=== PATIENT | female | born 1975 | race Caucasian/White ===

== ENCOUNTER 2024-07-10 07:23 | Day surgery (SDC) | payer OTHER ==
[2024-07-06 17:01] VITALS: BMI 27.3
[2024-07-10 07:38] VITALS: TEMP 97.7
[2024-07-10] MEDS ORDERED: ceFAZolin SODIUM 1 GM VIAL ONE ×2 (09:27→10:30)
[2024-07-10] MEDS ORDERED: TETRACAINE 0.5% OPHTH SOLN 2 ML BOTTLE ONE (09:27)
[2024-07-10] MEDS ORDERED: ERYTHROMYCIN 0.5% OPHTHALMIC OINTMENT 3.5 GM TUBE ONE (09:27)
[2024-07-10] MEDS ORDERED: LIDOCAINE 1%/EPI 1:100000 (20 ML MULTI DOSE VIAL) ONE (09:28)
[2024-07-10] MEDS ORDERED: BUPIVACAINE HCL/PF 0.5% (5MG/ML) 10 ML VIAL ONE (09:28)
[2024-07-10] MEDS ORDERED: POVIDONE-IODINE 5% OPHTHALMIC PREP 30 ML SOLUTION ONE (09:28)
[2024-07-10] MEDS ORDERED: MIDAZOLAM HCL 2 MG/2 ML SINGLE DOSE VIAL ONE ×3 (09:37→10:46)
[2024-07-10] MEDS ORDERED: PROPOFOL 20 ML ONE ×3 (10:05→10:54)
[2024-07-10] MEDS ORDERED: ONDANSETRON 4 MG/2 ML VIAL ONE (10:30)
[2024-07-10] MEDS ORDERED: DEXAMETHASONE SOD PHOSPHATE 4 MG/1 ML VIAL ONE (10:46)
[2024-07-10] MEDS ORDERED: ACETAMINOPHEN INJECTION 100 ML ONE (10:54)
[2024-07-10] MEDS ORDERED: ONDANSETRON 4 MG/2 ML VIAL IVPUSH PRN (11:34)
[2024-07-10] MEDS ORDERED: LACTATED RINGERS SOLUTION 1,000 ML IV SCH (11:45)
[2024-07-10 12:33] VITALS: RESP 16
[2024-07-10 12:51] VITALS: BP 114/67; PULSE 68
== END 2024-07-10 12:53 | disposition home or self-care (01) ==
LOC: FASU 07:23
PROVIDERS: ATTEND Ophthalmology
PROC: 08BQ0ZZ Excision of Right Lower Eyelid, Open Approach (ICD-10-PCS; principal; 2024-07-10 10:22)
DX: C44.1122 Basal cell carcinoma of skin of right lower eyelid, including canthus (principal); C44.319 Basal cell carcinoma of skin of other parts of face
CPT/HCPCS: 81025; 94760; J0131